=== PATIENT | female | born 1965 | race Caucasian/White ===

== ENCOUNTER 2017-08-19 19:10 | Emergency (ER) | payer OTHER ==
[2017-08-19 19:34] VITALS: BP 130/75; PULSE 93; O2SAT 100
[2017-08-19 19:54] LABS: BASOPHIL % 0.5 % (0.0-0.4); Basophil (Absolute #) 0.01 (0-0.4); Eosinophil (Absolute #) 0.02 (0-0.5); Granulocyte Absolute (ANC) 1.21 (1.4-6.9); Granulocytes % 61.4 % (36.0-66.0); Hematocrit 36.8 % (35-47); Hemoglobin 12.7 gm/dl (12.0-16.0); Lymphocytes % 20.3 % (24.0-44.0); Mean Cell Volume 101.1 fl (78-100); Mean Corpuscular Hgb Concent. 34.5 g/dl (32-36); Monocyte (Absolute #) 0.33 (0.0-1.3); Monocytes % 16.8 % (0.0-12.0); Platelet Count 181 K/mm3 (150-450); Red Blood Count 3.64 M/mm3 (4.1-5.4)
--- NOTE | 2017-08-19 19:55 | ERPHSYRPT ---
- History of Present Illness Time Seen by Provider: 08/19/17 19:27 Source: patient Exam Limitations: no limitations Patient Subjective Stated Complaint: Pt arrives to ER escorted by Police for c/ o "I don't want to live anymore. I don't want to kill myself, I'm too afraid. I just want to ". Pt explains that her granddaughter has been taken away from her daughter because her daughter is on drugs and has behavior problems. Pt called CPS on her daughter because of her daughters behavior. CPS took daughter' s parental rights away. CPS came to take pts granddaughter away from her. Pt has been done with Chemo and Radiation for months. Pt states her granddaughter helped her, giving her a reason to live and CPS took her granddaughter away from her. Pt house [facility] and shes going to lose it after 15 years. [facility] has appointment in August for her cancer. She has no money and lost her job. [facility] her friends have abandoned her. Pt tearful during assessment. [facility] took three 0.5mg Ativan pills around 1700. Triage Nursing Assessment: see above Physician History: Pt underwent surgery, chemotherapy and radiation for throat cancer since March of this year. She has been depressed. She took 4 x0.5 mg ativan tablets this afternoon, because she " just wanted to sleep ". Police was called , and she was brought here, but she denies being suicidal, she has been calm and cooperative, denies any complaints, besides her depression. She denies alcohol, taking other drugs, or any injuries. Timing/Duration: today Severity of Symptoms-Max: none Severity of Symptoms-Current: none Context related to: other (medical disease) Associated Symptoms: denies symptoms Previous symptoms: no prior history Allergies/Adverse Reactions: No Known Drug Allergies Allergy (Unverified 08/19/17 19:34) Home Medications: ALPRAZolam [Xanax ER 0.5MG] 0.5 mg PO DAILY 08/19/17 [History] Docusate Sodium 100 mg [Colace 100 MG] 100 mg PO DAILY 08/19/17 [History] Hydrocodone/Acetaminophen [Hydrocodone-Acetamin 5-325 mg] 5 mg PO Q6-8HPRN PRN 08/19/17 [History] Lidocaine HCl [Lidocaine HCl Viscous] 20 mg MM Q2H/PRN PRN 08/19/17 [History] Nystatin/TCN/Hc/Diphenhydram [Katerin's Magic Mouthwash] 20 ml MM Q2H/PRN PRN 08/19/17 [History] Omeprazole 20 mg PO DAILY 08/19/17 [History] Ondansetron [Ondansetron Odt] 8 mg PO Q6-8HPRN PRN 08/19/17 [History] - Past Medical History Pertinent Past Medical History: Yes Other Medical History: allopecia, throat cancer - Past Surgical History Past Surgical History: Yes Female Surgical History: Section Other Surgical History: port placement, throat surgery for cancer removal - Social History Smoking Status: Former smoker How long have you smoked: 20 Exposure to second hand smoke: No Drug Use: none Patient Lives Alone: No - Female History Hx Now: No - Review of Systems Constitutional: No Symptoms Psychological: Depression, No Alcohol Abuse, No Drug Abuse, No Suicidal Ideations All Other Systems: Reviewed and Negative - Nursing Vital Signs Nursing Vital Signs: Initial Vital Signs Temperature 98.5 F 08/19/17 19:14 Pulse Rate 93 H 08/19/17 19:14 Respiratory Rate 18 08/19/17 19:14 Blood Pressure 130/75 08/19/17 19:14 O2 Sat by Pulse Oximetry 100 08/19/17 19:14 Pain Scale Pain Intensity 0 - Physical Exam General Appearance: no apparent distress Eyes, Ears, Nose, Throat Exam: normal ENT inspection, moist mucous membranes, other (oral thrush) Neck Exam: normal inspection, non-tender, supple, No JVD Respiratory Exam: normal breath sounds, lungs clear, airway intact Cardiovascular Exam: regular rate/rhythm, normal heart sounds, normal peripheral pulses, No murmur Gastrointestinal/Abdominal Exam: soft, normal bowel sounds, No tenderness Extremities Exam: normal inspection Neurological Exam: alert, normal mood/affect, oriented x 3 Appearance: appropriate appearance, appropriate insight Behavior/Eye Contact/Speech: alert & cooperative Thoughts/Hallucinations: normal thought pattern Skin Exam: normal color, warm, dry, other (few soltary scamm, scab covered lesions on her face, no ulcers or other lesions.) SpO2 Interpretation: normal SpO2: 100 Oxygen Delivery: Room Air - Course Nursing assessment & vital signs reviewed: Yes EKG Interpreted by Me: RATE (94/min), NORMAL AXIS, NORMAL INTERVALS, NORMAL ST-T Ordered Tests: Active Orders 24 hr Category Date Time Status EKG-ER Only STAT Care 08/19/17 19:31 Active ACETAMINOPHEN Stat Lab 08/19/17 20:00 Completed CBC W DIFF Stat Lab 08/19/17 19:31 Results CMP Stat Lab 08/19/17 20:00 Completed ETHYL ALCOHOL Stat Lab 08/19/17 20:00 Completed Manual Differential NC Stat Lab 08/19/17 19:31 Results Pathologist Review Stat Lab 08/19/17 19:31 Results SALICYLATE Stat Lab 08/19/17 20:00 Completed TSH [TSH, 3RD Generation] Stat Lab 08/19/17 20:00 Completed UA W/ MICROSCOPIC Stat Lab 08/19/17 20:03 Completed Urine Triage Profile Stat Lab 08/19/17 20:00 Completed Lab/Rad Data: Laboratory Result Diagrams 08/19/17 19:31 08/19/17 20:00 Laboratory Results 08/19/17 08/19/17 08/19/17 Range/Units 20:03 20:00 20:00 WBC (4.0-10.5) K/mm3 RBC (4.1-5.4) M/mm3 Hgb (12.0-16.0) gm/dl Hct (35-47) % MCV (78-100) fl MCH (26-32) pg MCHC (32-36) g/dl RDW (11.5-14.0) % Plt Count (150-450) K/mm3 MPV (6-9.5) fl Gran % (36.0-66.0) % Eos # (Auto) (0-0.5) Absolute Lymphs (auto) (1.0-4.6) Absolute Monos (auto) (0.0-1.3) Lymphocytes % (24.0-44.0) % Monocytes % (0.0-12.0) % Eosinophils % (0.00-5.0) % Basophils % (0.0-0.4) % Absolute Granulocytes (1.4-6.9) Segmented Neutrophils (36.0-66.0) % Lymphocytes (Manual) (24-44) % Monocytes (Manual) (0.0-12.0) % Basophils # (0-0.4) Platelet Estimate (NORMAL) RBC Morphology Poikilocytosis Anisocytosis Smear Path Review Sodium (137-145) mmol/L Potassium (3.5-5.1) mmol/L Chloride (98-107) mmol/L Carbon Dioxide (22-30) mmol/L Anion Gap (5-15) MEQ/L BUN (7-17) mg/dL Creatinine (0.52-1.04) mg/dL Estimated GFR ML/MIN Glucose (74-106) mg/dL Calcium (8.4-10.2) mg/dL Total Bilirubin (0.2-1.3) mg/dL AST (14-36) U/L ALT (0-35) U/L Alkaline Phosphatase (38-126) U/L Serum Total Protein (6.3-8.2) g/dL Albumin (3.5-5.0) g/dL TSH 3rd Generation 2.890 (0.47-4.68) mIU/L Ur Collection Type CCMS Urine Color LT.YELLOW (YELLOW) Urine Appearance CLEAR (CLEAR) Urine pH 7.0 (5-6) Ur Specific [place] 1.005 (1.005-1.025) Urine Protein NEGATIVE (Negative) Urine Ketones NEGATIVE (NEGATIVE) Urine Blood TRACE HEMOLYZED (0-5) Onesimo/ul Urine Nitrite NEGATIVE (NEGATIVE) Urine Bilirubin NEGATIVE (NEGATIVE) Urine Urobilinogen NORMAL (0-1) mg/dL Ur Leukocyte Esterase TRACE (NEGATIVE) Urine Microscopic WBC 0-2 (0-5) /HPF Urine Culture Reflexed NO (NO) Urine Glucose NEGATIVE (NEGATIVE) mg/dL Salicylates (2-20) mg/dL Urine Opiates Level NEGATIVE (NEGATIVE) Ur Methadone NEGATIVE (NEGATIVE) Acetaminophen (10-30) ug/ml Urine Barbiturates NEGATIVE (NEGATIVE) Ur Phencyclidine (PCP) NEGATIVE (NEGATIVE) Urine Amphetamine NEGATIVE (NEGATIVE) U Benzodiazepine Level NEGATIVE (NEGATIVE) Urine Cocaine NEGATIVE (NEGATIVE) Urine Marijuana (THC) NEGATIVE (NEGATIVE) Ethyl Alcohol (0-10) mg/dL Specimen Received [id number]/19/17 08/19/17 Range/Units 20:00 19:31 WBC 2.0 L (4.0-10.5) K/mm3 RBC 3.64 L (4.1-5.4) M/mm3 Hgb 12.7 (12.0-16.0) gm/dl Hct 36.8 (35-47) % MCV 101.1 H (78-100) fl MCH 34.8 H (26-32) pg MCHC 34.5 (32-36) g/dl RDW 16.0 H (11.5-14.0) % Plt Count 181 (150-450) K/mm3 MPV 10.0 H (6-9.5) fl Gran % 61.4 (36.0-66.0) % Eos # (Auto) 0.02 (0-0.5) Absolute Lymphs (auto) 0.40 L (1.0-4.6) Absolute Monos (auto) 0.33 (0.0-1.3) Lymphocytes % 20.3 L (24.0-44.0) % Monocytes % 16.8 H (0.0-12.0) % Eosinophils % 1.0 (0.00-5.0) % Basophils % 0.5 (0.0-0.4) % Absolute Granulocytes 1.21 L (1.4-6.9) Segmented Neutrophils 60 (36.0-66.0) % Lymphocytes (Manual) 25 (24-44) % Monocytes (Manual) 15 H (0.0-12.0) % Basophils # 0.01 (0-0.4) Platelet Estimate NORMAL (NORMAL) RBC Morphology ABNORMAL Poikilocytosis 1+ Anisocytosis 1+ Smear Path Review Pending Sodium 144 (137-145) mmol/L Potassium 3.4 L (3.5-5.1) mmol/L Chloride 105 (98-107) mmol/L Carbon Dioxide 28 (22-30) mmol/L Anion Gap 13.8 (5-15) MEQ/L BUN 12 (7-17) mg/dL Creatinine 0.65 (0.52-1.04) mg/dL Estimated GFR > 60.0 ML/MIN Glucose 107 H (74-106) mg/dL Calcium 10.1 (8.4-10.2) mg/dL Total Bilirubin 0.40 (0.2-1.3) mg/dL AST 24 (14-36) U/L ALT 18 (0-35) U/L Alkaline Phosphatase 74 (38-126) U/L Serum Total Protein 7.7 (6.3-8.2) g/dL Albumin 4.7 (3.5-5.0) g/dL TSH 3rd Generation (0.47-4.68) mIU/L Ur Collection Type Urine Color (YELLOW) Urine Appearance (CLEAR) Urine pH (5-6) Ur Specific [place] (1.005-1.025) Urine Protein (Negative) Urine Ketones (NEGATIVE) Urine Blood (0-5) Onesimo/ul Urine Nitrite (NEGATIVE) Urine Bilirubin (NEGATIVE) Urine Urobilinogen (0-1) mg/dL Ur Leukocyte Esterase (NEGATIVE) Urine Microscopic WBC (0-5) /HPF Urine Culture Reflexed (NO) Urine Glucose (NEGATIVE) mg/dL Salicylates < 1.0 L (2-20) mg/dL Urine Opiates Level (NEGATIVE) Ur Methadone (NEGATIVE) Acetaminophen < 10 L (10-30) ug/ml Urine Barbiturates (NEGATIVE) Ur Phencyclidine (PCP) (NEGATIVE) Urine Amphetamine (NEGATIVE) U Benzodiazepine Level (NEGATIVE) Urine Cocaine (NEGATIVE) Urine Marijuana (THC) (NEGATIVE) Ethyl Alcohol < 10 (0-10) mg/dL Specimen Received - Progress Progress: unchanged Progress Note: 08/19/17 21:00 Pt remains calm, cooperative, communicates, she wants to go home, denies being suicidal. She is medically clear for psychiatric evaluation. 08/19/17 23:18 Telepsychiatry was completed by [facility], she was instructed to follow up with them as an outpatient, and safe to be discharged on a psychiatric standpoint. Counseled pt/family regarding: lab results, diagnosis, need for follow-up - Departure Time of Disposition: 23:19 Departure Disposition: Home Clinical Impression: Depression Qualifiers: Depression Type: unspecified Qualified Code(s): F32.9 - Major depressive disorder, single episode, unspecified Condition: Stable Critical Care Time: No Referrals: DRE CLEMONS [Primary Care Provider] - Instructions: Depression, Adult (DC) Additional Instructions: Return if severe depression, becoming suicidal! Follow up with [facility] outpatient clinc as directed, and with your PCP this week!
[2017-08-19 19:59] LABS: Mean Corpuscular Hemoglobin 34.8 pg (26-32)
[2017-08-19 20:11] LABS: ACETAMINOPHEN < 10 ug/ml (10-30); ALBUMIN 4.7 g/dL (3.5-5.0); ALKALINE PHOSPHATASE 74 U/L (38-126); ANION GAP 13.8 MEQ/L (5-15); BLOOD UREA NITROGEN 12 mg/dL (7-17); CHLORIDE 105 mmol/L (98-107); Calcium 10.1 mg/dL (8.4-10.2); Carbon Dioxide 28 mmol/L (22-30); Creatinine 1 0.65 mg/dL (0.52-1.04); ETHYL ALCOHOL < 10 mg/dL (0-10); Glucose 107 mg/dL (74-106); Potassium 3.4 mmol/L (3.5-5.1); SALICYLATE < 1.0 mg/dL (2-20); SGOT/AST 24 U/L (14-36); SGPT/ALT 18 U/L (0-35); SODIUM 144 mmol/L (137-145); Total Protein 7.7 g/dL (6.3-8.2)
[2017-08-19 20:17] LABS: Appearance CLEAR (CLEAR); Bilirubin NEGATIVE (NEGATIVE); Blood TRACE HEMOLYZED Ery/ul (0-5); Glucose NEGATIVE (NEGATIVE); Ketones NEGATIVE (NEGATIVE); Leukocyte Esterase TRACE (NEGATIVE); Nitrite NEGATIVE (NEGATIVE); Protein,Urine Dip NEGATIVE (Negative); Specific Gravity 1.005 (1.005-1.025); Urobilinogen NORMAL mg/dL (0-1)
[2017-08-19 20:18] LABS: WBC 0-2 /HPF (0-5)
[2017-08-19 20:24] LABS: Amphetamine,Urine NEGATIVE (NEGATIVE); Barbiturate,Urine NEGATIVE (NEGATIVE); Benzodiazepine,Urine NEGATIVE (NEGATIVE); Cocaine,Urine NEGATIVE (NEGATIVE); Methadone,Urine NEGATIVE (NEGATIVE); Opiate,Urine NEGATIVE (NEGATIVE); PCP,Urine NEGATIVE (NEGATIVE); THC,Urine NEGATIVE (NEGATIVE)
[2017-08-19 21:03] LABS: Lymphocytes 25 % (24-44); Monocyte 15 % (0.0-12.0); Neutrophils 60 % (36.0-66.0); Total Cells Counted 100
[2017-08-19 21:04] LABS: Poikilocytosis 1+
[2017-08-19 21:06] LABS: ANISOCYTOSIS 1+; Platelet Estimate NORMAL (NORMAL)
== END 2017-08-19 23:27 | disposition home or self-care (01) ==
LOC: ED 19:10
DX: F32.9 Major depressive disorder, single episode, unspecified (principal); Z79.899 Other long term (current) drug therapy
CPT/HCPCS: 36415; 80053; 80307; 81000; 84443; 85025; 90791; 93005; G0481; 99284; Q3014; G0480

== ENCOUNTER 2021-11-16 01:33 | Emergency (ER) | payer MEDICARE, OTHER ==
[2021-11-16] MEDS ORDERED: Sodium Chloride 0.9% 1000 ML 1,000 ML IV STA (02:08)
[2021-11-16] MEDS ORDERED: TORAdol 30 mg Injection IV ONE (02:10)
--- NOTE | 2021-11-16 02:15 | ERPHSYRPT ---
- History of Present Illness Historian: patient Exam Limitations: no limitations Patient Subjective Stated Complaint: My stomach is killing me, this started about 2 hours ago and came out of no where. Triage Nursing Assessment: pt ambulated into ER. Pt c/o mid upper abd pain which started around midnight tonight. Pt describes pain as "cramping and aching". Pt informed me this has occured 2 other times in the last 2 months. Abd soft, flat with faint bs x4 quad, tender to mid upper abd section on palpation. Pt is nauseated, vomited x1, belching and has alot of gas, bm x2 today, no diarrhea. Physician History: 56 yo wf w alsyon-umbilical pain [id number]. Pain is sharp/cramping and 8/10 on scale. She has had N/V wo hematemesis/diarrhea. Melena/hematochezia denied, along w dysuria/hematuria/chest pain/cough/fever. Pt still has her appen memo/gallbladder and is post-menopausal. Timing/Duration: other (90min) Quality: cramping, sharpness Abdominal Pain Onset Location: periumbilical Pain Radiation: no radiation Severity of Pain-Max: severe Severity of Pain-Current: severe Modifying Factors: Improves With: lying down (Makes pain worse) Associated Symptoms: nausea, vomiting, No back, No chest pain, No diaphoresis, No diarrhea, No fever/chills, No fatigue, No headache, No heartburn, No loss of appetite, No neck pain, No rash, No shortness of breath, No syncope, No weakness Previous symptoms: same symptoms as today Allergies/Adverse Reactions: No Known Drug Allergies Allergy (Verified 11/16/21 01:58) Home Medications: Citalopram Hydrobromide [Celexa] 40 mg PO DAILY 11/16/21 [History] Hx Tetanus, Diphtheria Vaccination/Date Given: Yes Hx Influenza Vaccination/Date Given: No Hx Pneumococcal Vaccination/Date Given: No Immunizations Up to Date: Yes Travel Risk - International Travel Have you traveled outside of the country in past 3 weeks: No - Coronavirus Screening Are you exhibiting any of the following symptoms?: No Close contact with a COVID-19 positive Pt in past 14-21 Days: No - Vaccine Status Have you recieved a Covid-19 vaccination: No - Review of Systems Constitutional: No Symptoms Eyes: No Symptoms Ears, Nose, & Throat: No Symptoms Respiratory: No Symptoms Cardiac: No Symptoms Abdominal/Gastrointestinal: No Symptoms, Abdominal Pain, Nausea, Vomiting Genitourinary Symptoms: No Symptoms Musculoskeletal: No Symptoms Skin: No Symptoms Neurological: No Symptoms Psychological: No Symptoms Endocrine: No Symptoms Hematologic/Lymphatic: No Symptoms Immunological/Allergic: No Symptoms - Past Medical History Pertinent Past Medical History: Yes Neurological History: No Pertinent History ENT History: No Pertinent History Cardiac History: No Pertinent History Respiratory History: No Pertinent History Endocrine Medical History: No Pertinent History Musculoskeletal History: No Pertinent History History: No Pertinent History Psycho-Social History: No Pertinent History Female Reproductive Disorders: No Pertinent History Other Medical History: allopecia, throat cancer - Past Surgical History Past Surgical History: Yes Female Surgical History: Section Other Surgical History: port placement, throat surgery for cancer removal - Social History Smoking Status: Former smoker How long have you smoked: 20 Exposure to second hand smoke: No Drug Use: none Patient Lives Alone: No Significant Family History: no pertinent family hx - Nursing Vital Signs Nursing Vital Signs: Initial Vital Signs Temperature 96.4 F 11/16/21 01:50 Pulse Rate 70 11/16/21 01:50 Respiratory Rate 16 11/16/21 01:50 Blood Pressure 96/53 11/16/21 01:50 O2 Sat by Pulse Oximetry 96 11/16/21 01:50 Pain Scale Pain Intensity 0 Borderline hypotension - Physical Exam General Appearance: no apparent distress (In pain) Eye Exam: PERRL/EOMI, eyes nml inspection Ears, Nose, Throat Exam: normal ENT inspection, TMs normal, pharynx normal, moist mucous membranes Neck Exam: normal inspection, non-tender, supple, full range of motion, No meningismus, No mass, No Brudzinski, No Kernig's Respiratory Exam: normal breath sounds, lungs clear, airway intact Cardiovascular Exam: regular rate/rhythm, normal heart sounds, normal peripheral pulses, capillary refill <2 sec, No murmur Gastrointestinal/Abdomen Exam: soft, tenderness (Moderate periumbilical TTP wo guarding or rebound) Back Exam: normal inspection, normal range of motion, No CVA tenderness, No vertebral tenderness Extremity Exam: normal inspection, normal range of motion Neurologic Exam: alert, oriented x 3, cooperative, 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, normal mood/affect, sensation nml Skin Exam: normal color, warm, dry Lymphatic Exam: No adenopathy SpO2 Interpretation: normal SpO2: 96 O2 Delivery: Room Air - Course Nursing assessment & vital signs reviewed: Yes EKG Interpreted by Me: RATE (NSR/Rate74/Prolonged QT-QTc/Poor tracing due to artifact/Nonspecific ST-Twave changes) - CT Exams Abdomen/Pelvis CT Interpretation: Tele-radiologist Report (Cholelithiasis) Ordered Tests: Active Orders 24 hr Category Date Time Status EKG-ER Only STAT Care 11/16/21 02:08 Completed IV Insertion STAT Care 11/16/21 02:08 Completed ABDOMEN AND PELVIS W CONTRAST [CT] Stat Exams 11/16/21 03:12 Taken AMYLASE Stat Lab 11/16/21 02:27 Completed CBC W DIFF Stat Lab 11/16/21 02:27 Completed CMP Stat Lab 11/16/21 02:27 Completed CULTURE,URINE Stat Lab 11/16/21 02:26 Received HCG QUALITATIVE,SERUM Stat Lab 11/16/21 02:27 Completed LIPASE Stat Lab 11/16/21 02:27 Completed Lactic Acid Stat Lab 11/16/21 02:24 Completed TROPONIN Q4H Lab 11/16/21 02:27 Completed UA W/RFX CULTURE Stat Lab 11/16/21 02:26 Completed Medication Summary Discontinued Medications Generic Name Dose Route Start Last Admin Trade Name Freq PRN Reason Stop Dose Admin Sodium Chloride 1,000 mls @ 999 mls/hr 11/16/21 02:08 11/16/21 02:33 Sodium Chloride 0.9% 1000 Ml IV 11/16/21 03:08 999 mls/hr .Q1H1M STA Administration Sodium Chloride Confirm 11/16/21 02:29 Sodium Chloride 0.9% 1000 Ml Administered 11/16/21 02:30 Dose 1,000 mls @ ud .ROUTE .STK-MED ONE Ketorolac Tromethamine 15 mg 11/16/21 02:10 11/16/21 02:32 Ketorolac Tromethamine 30 Mg/Ml Inj IV 11/16/21 02:11 15 mg STAT ONE Administration Ketorolac Tromethamine Confirm 11/16/21 02:29 Ketorolac Tromethamine 30 Mg/Ml Inj Administered 11/16/21 02:30 Dose 30 mg .ROUTE .STK-MED ONE Ondansetron HCl 4 mg 11/16/21 02:30 11/16/21 02:32 Ondansetron Hcl 4 Mg/2 Ml Vial IV 11/16/21 02:31 4 mg STAT ONE Administration Ondansetron HCl Confirm 11/16/21 02:29 Ondansetron Hcl 4 Mg/2 Ml Vial Administered 11/16/21 02:30 Dose 4 mg .ROUTE .STK-MED ONE Lab/Rad Data: Laboratory Result Diagrams 11/16/21 02:27 11/16/21 02:27 Laboratory Results 11/16/21 11/16/21 11/16/21 Range/Units 02:27 02:27 02:27 WBC (4.0-10.5) x10^3/uL RBC (4.1-5.4) x10^6/uL Hgb (12.0-16.0) g/dL Hct (35-47) % MCV (78-100) fL MCH (26-32) pg MCHC (32-36) g/dL RDW (11.5-14.0) % Plt Count (150-450) x10^3/uL MPV (7.5-11.0) fL Gran % (36.0-66.0) % Immature Gran % (Auto) (0.00-0.4) % Nucleat RBC Rel Count (0.00-0.1) % Eos # (Auto) (0-0.5) x10^3/uL Immature Gran # (Auto) (0.00-0.03) x10^3u/L Absolute Lymphs (auto) (1.0-4.6) x10^3/uL Absolute Monos (auto) (0.0-1.3) x10^3/uL Absolute Nucleated RBC (0.00-0.01) x10^3u/L Lymphocytes % (24.0-44.0) % Monocytes % (0.0-12.0) % Eosinophils % (0.00-5.0) % Basophils % (0.0-0.4) % Absolute Granulocytes (1.4-6.9) x10^3/uL Basophils # (0-0.4) x10^3/uL Sodium 137 (137-145) mmol/L Potassium 3.7 (3.5-5.1) mmol/L Chloride 101 (98-107) mmol/L Carbon Dioxide 32 H (22-30) mmol/L Anion Gap 7.7 (5-15) MEQ/L BUN 25 H (7-17) mg/dL Creatinine 0.63 (0.52-1.04) mg/dL Estimated GFR > 60.0 ML/MIN Glucose 163 H (74-106) mg/dL Lactic Acid (0.4-2.0) Calcium 9.4 (8.4-10.2) mg/dL Total Bilirubin 0.50 (0.2-1.3) mg/dL AST 159 H (14-36) U/L ALT 73 H (0-35) U/L Alkaline Phosphatase 77 (38-126) U/L Troponin I < 0.012 (0.000-0.034) ng/mL Serum Total Protein 6.9 (6.3-8.2) g/dL Albumin 4.3 (3.5-5.0) g/dL Amylase 81 (30-110) U/L Lipase 191 (23-300) U/L Serum , Qual NEGATIVE (Negative) Urinalys Dipstick Clnc Urine Color (YELLOW) Urine Appearance (CLEAR) Urine pH (5-6) Ur Specific [place] (1.005-1.025) POC Urine Protein Conf (Negative) Urine Ketones (NEGATIVE) Urine Nitrite (NEGATIVE) Urine Bilirubin (NEGATIVE) Urine Urobilinogen (0-1) mg/dL Urine Leukocytes (NEGATIVE) Urine WBC (Auto) (0-5) /HPF Urine RBC (Auto) (0-2) /HPF U Epithel Cells (Auto) (FEW) /HPF Urine Bacteria (Auto) (NEGATIVE) /HPF Urine RBC (0-5) Onesimo/ul Calcium Oxalate Crystal (NEGATIVE) /HPF Urine Mucus (Auto) (NEGATIVE) /HPF Ur Culture Indicated? Urine Glucose (NEGATIVE) mg/dL 11/16/21 11/16/21 11/16/21 Range/Units 02:27 02:26 02:24 WBC 5.8 (4.0-10.5) x10^3/uL RBC 4.01 L (4.1-5.4) x10^6/uL Hgb 12.7 (12.0-16.0) g/dL Hct 39.2 (35-47) % MCV 97.8 (78-100) fL MCH 31.7 (26-32) pg MCHC 32.4 (32-36) g/dL RDW 13.0 (11.5-14.0) % Plt Count 246 (150-450) x10^3/uL MPV 10.1 (7.5-11.0) fL Gran % 77.6 H (36.0-66.0) % Immature Gran % (Auto) 0.5 H (0.00-0.4) % Nucleat RBC Rel Count 0.0 (0.00-0.1) % Eos # (Auto) 0.08 (0-0.5) x10^3/uL Immature Gran # (Auto) 0.03 (0.00-0.03) x10^3u/L Absolute Lymphs (auto) 0.76 L (1.0-4.6) x10^3/uL Absolute Monos (auto) 0.39 (0.0-1.3) x10^3/uL Absolute Nucleated RBC 0.00 (0.00-0.01) x10^3u/L Lymphocytes % 13.2 L (24.0-44.0) % Monocytes % 6.8 (0.0-12.0) % Eosinophils % 1.4 (0.00-5.0) % Basophils % 0.5 (0.0-0.4) % Absolute Granulocytes 4.46 (1.4-6.9) x10^3/uL Basophils # 0.03 (0-0.4) x10^3/uL Sodium (137-145) mmol/L Potassium (3.5-5.1) mmol/L Chloride (98-107) mmol/L Carbon Dioxide (22-30) mmol/L Anion Gap (5-15) MEQ/L BUN (7-17) mg/dL Creatinine (0.52-1.04) mg/dL Estimated GFR ML/MIN Glucose (74-106) mg/dL Lactic Acid 1.2 (0.4-2.0) Calcium (8.4-10.2) mg/dL Total Bilirubin (0.2-1.3) mg/dL AST (14-36) U/L ALT (0-35) U/L Alkaline Phosphatase (38-126) U/L Troponin I (0.000-0.034) ng/mL Serum Total Protein (6.3-8.2) g/dL Albumin (3.5-5.0) g/dL Amylase (30-110) U/L Lipase (23-300) U/L Serum , Qual (Negative) Urinalys Dipstick Clnc MAIN LAB Urine Color YELLOW (YELLOW) Urine Appearance CLEAR (CLEAR) Urine pH 5.5 (5-6) Ur Specific [place] >=1.030 (1.005-1.025) POC Urine Protein Conf NEGATIVE (Negative) Urine Ketones NEGATIVE (NEGATIVE) Urine Nitrite NEGATIVE (NEGATIVE) Urine Bilirubin NEGATIVE (NEGATIVE) Urine Urobilinogen 0.2 (0-1) mg/dL Urine Leukocytes SMALL (NEGATIVE) Urine WBC (Auto) 16-25 (0-5) /HPF Urine RBC (Auto) 3-5 (0-2) /HPF U Epithel Cells (Auto) RARE (FEW) /HPF Urine Bacteria (Auto) NONE SEEN (NEGATIVE) /HPF Urine RBC TRACE-INTACT (0-5) Onesimo/ul Calcium Oxalate Crystal 3-5 (NEGATIVE) /HPF Urine Mucus (Auto) SLIGHT (NEGATIVE) /HPF Ur Culture Indicated? YES Urine Glucose NEGATIVE (NEGATIVE) mg/dL - Progress Progress: improved Progress Note: 11/16/21 04:11 Pain started to sugey before 15mg IV Toradol and subsided after Toradol given. 1L NS bolus/4mg IV Zofran 11/16/21 05:59 Pt pain free before discharge - Departure Departure Disposition: Home Clinical Impression: Cholelithiasis, UTI (urinary tract infection) Condition: Stable Critical Care Time: No Referrals: DRE CLEMONS [Primary Care Provider] - Follow up/PCP as directed Instructions: Urinary Tract Infection, Adult (DC), Severe Abdominal Pain, Adult (DC), Gallstones (DC) Additional Instructions: Ultrasound Gallbladder 11/21/21 11:00AM Start Bactrim twice a day for 5 days Follow up with Dr. Salazar [phone] Return to ER for increasing pain or temperature greater than 100.5 Prescriptions: Sulfamethoxazole/Trimethoprim [Bactrim Ds Tablet] 1 each PO BID #10 tablet
[2021-11-16] MEDS ORDERED: Zofran 4 MG/2 ML VIAL ONE (02:29)
[2021-11-16] MEDS ORDERED: TORAdol 30 mg Injection ONE (02:29)
[2021-11-16] MEDS ORDERED: Sodium Chloride 0.9% 1000 ML 1,000 ML ONE (02:29)
[2021-11-16] MEDS ORDERED: Zofran 4 MG/2 ML VIAL IV ONE (02:30)
[2021-11-16 02:31] LABS: Absolute Neutrophil Ct (ANC) 4.46 x10^3/uL (1.4-6.9); Basophil (Absolute #) 0.03 x10^3/uL (0-0.4); Eosinophil % 1.4 % (0.00-5.0); Eosinophil (Absolute #) 0.08 x10^3/uL (0-0.5); Hematocrit 39.2 % (35-47); Hemoglobin 12.7 g/dL (12.0-16.0); Lymphocyte (Absolute #) 0.76 x10^3/uL (1.0-4.6); Lymphocytes % 13.2 % (24.0-44.0); Mean Cell Volume 97.8 fL (78-100); Mean Corpuscular Hemoglobin 31.7 pg (26-32); Mean Corpuscular Hgb Concent. 32.4 g/dL (32-36); Mean Platelet Volume 10.1 fL (7.5-11.0); Monocyte (Absolute #) 0.39 x10^3/uL (0.0-1.3); Monocytes % 6.8 % (0.0-12.0); Neutrophil % 77.6 % (36.0-66.0); Platelet Count 246 x10^3/uL (150-450); Red Blood Count 4.01 x10^6/uL (4.1-5.4); White Blood Count 5.8 x10^3/uL (4.0-10.5)
[2021-11-16 02:35] LABS: Epithelial Cells RARE /HPF (FEW); Mucus SLIGHT /HPF (NEGATIVE)
[2021-11-16 02:36] LABS: Appearance CLEAR (CLEAR); Bilirubin NEGATIVE (NEGATIVE); Glucose NEGATIVE (NEGATIVE); Ketones NEGATIVE (NEGATIVE); Specific Gravity >=1.030 (1.005-1.025)
[2021-11-16 02:37] LABS: Bacteria NONE SEEN /HPF (NEGATIVE); Dipstick done @ ? MAIN LAB; Nitrite NEGATIVE (NEGATIVE); Ph 5.5 (5-6); Protein,Urine Dip NEGATIVE (Negative); RBC TRACE-INTACT Ery/ul (0-5); Urine Cultured Indicated? YES; Urobilinogen 0.2 mg/dL (0-1)
[2021-11-16 02:44] LABS: ALBUMIN 4.3 g/dL (3.5-5.0); ALKALINE PHOSPHATASE 77 U/L (38-126); AMYLASE 81 U/L (30-110); ANION GAP 7.7 MEQ/L (5-15); BLOOD UREA NITROGEN 25 mg/dL (7-17); CHLORIDE 101 mmol/L (98-107); Calcium 9.4 mg/dL (8.4-10.2); Carbon Dioxide 32 mmol/L (22-30); Creatinine 1 0.63 mg/dL (0.52-1.04); EST GLOMERULAR FILTRATION RATE > 60.0 ML/MIN; Glucose 163 mg/dL (74-106); LIPASE 191 U/L (23-300); Potassium 3.7 mmol/L (3.5-5.1); SGOT/AST 159 U/L (14-36); SGPT/ALT 73 U/L (0-35); SODIUM 137 mmol/L (137-145); Total Protein 6.9 g/dL (6.3-8.2)
[2021-11-16 05:54] VITALS: O2SAT 96
[2021-11-16 06:13] VITALS: BP 99/63; PULSE 60
--- NOTE | 2021-11-16 09:01 | XRAY ---
Indication: Abdomen pain, nausea, and vomiting. UTI. Multiple contiguous axial images obtained through the abdomen and pelvis using 80 cc Isovue 370 contrast. Comparison: None Lung bases emesis minimal bilateral dependent atelectasis. Posterior right lower lobe demonstrates 6 mm indeterminant subpleural noncalcified nodule. Similar 3 mm posterior lateral left lower lobe subpleural noncalcified nodule. Heart not enlarged. Noncontrasted stomach and bowel loops appear nonobstructed. Appendix not visualized. No free fluid/air. Mild distended gallbladder with tiny gravel in the dependent portion and diffuse biliary tree distention. Common bile duct measures 9 mm. No free fluid/air. Left lower kidney demonstrates nonobstructing punctate calculus. Small splenic calcified granuloma. Remaining liver, pancreas, spleen, adrenal glands, kidneys, ureters, bladder, uterus, and aorta are unremarkable. No pathologic retroperitoneal lymphadenopathy. Osseous structures intact with minimal degenerative spondylosis throughout the thoracolumbar spine, 4-5 mm L4 anterolisthesis, and mild levoscoliosis centered at L3. Impression: 1. Abnormal distended gallbladder with tiny gravel and diffuse biliary distention. Sonogram may yield further information. 2. Indeterminant noncalcified pulmonary micronodules. Outside comparison studies recommended if available. If not, CT chest with follow-up per Fleischner guidelines recommended. 3. Nonobstructing left renal punctate calculus and chronic bony findings. Comment: Preliminary interpretation made by [facility]. No critical discrepancy.
== END 2021-11-16 06:14 | disposition home or self-care (01) ==
LOC: ED 01:33
DX: K80.20 Calculus of gallbladder without cholecystitis without obstruction (principal); N39.0 Urinary tract infection, site not specified; R10.33 Periumbilical pain; R11.2 Nausea with vomiting, unspecified; Z79.899 Other long term (current) drug therapy; Z28.310 Unvaccinated for COVID-19
CPT/HCPCS: 36000; 36415; 74177; 80053; 81015; 82150; 83605; 83690; 84484; 84703; 85025; 87086; 93005; 96374; 96375; 99284; J1885; J2405

== ENCOUNTER 2021-11-16 17:20 | Observation (INO) | payer MEDICARE, OTHER ==
[2021-11-16] MEDS ORDERED: Zofran 4 MG/2 ML VIAL IV PRN (19:56)
[2021-11-16] MEDS: Hydromorphone 1 mg/ml Injection IV PRN (20:46)
[2021-11-16] MEDS: Sodium Chloride 0.9% 1000 ML 1,000 ML IV SCH (20:47)
[2021-11-16] MEDS ORDERED: ENOXAPARIN SODIUM SQ SCH (22:00)
[2021-11-16 22:24] LABS: Bacteria RARE /HPF (NEGATIVE); Epithelial Cells RARE /HPF (FEW); Mucus MANY /HPF (NEGATIVE)
[2021-11-16 22:25] LABS: Appearance SLIGHTLY CLOUDY (CLEAR); Bilirubin MODERATE (NEGATIVE); Dipstick done @ ? MAIN LAB; Glucose NEGATIVE (NEGATIVE); Ketones TRACE (NEGATIVE); Nitrite NEGATIVE (NEGATIVE); Protein,Urine Dip 30 (Negative); RBC NEGATIVE Ery/ul (0-5); Specific Gravity 1.025 (1.005-1.025); Urobilinogen 1 mg/dL (0-1)
[2021-11-16 22:26] LABS: Urine Cultured Indicated? YES
[2021-11-17] MEDS: Sodium Chloride 0.9% 1000 ML 1,000 ML IV SCH ×3 (03:20→18:37)
[2021-11-17 04:59] LABS: Basophil (Absolute #) 0.01 x10^3/uL (0-0.4); Eosinophil % 2.6 % (0.00-5.0); Eosinophil (Absolute #) 0.06 x10^3/uL (0-0.5); Hematocrit 32.5 % (35-47); Hemoglobin 10.7 g/dL (12.0-16.0); Lymphocyte (Absolute #) 0.61 x10^3/uL (1.0-4.6); Lymphocytes % 26.8 % (24.0-44.0); Mean Cell Volume 95.9 fL (78-100); Mean Corpuscular Hemoglobin 31.6 pg (26-32); Mean Corpuscular Hgb Concent. 32.9 g/dL (32-36); Mean Platelet Volume 10.4 fL (7.5-11.0); Monocyte (Absolute #) 0.29 x10^3/uL (0.0-1.3); Monocytes % 12.7 % (0.0-12.0); Neutrophil % 57.1 % (36.0-66.0); Platelet Count 191 x10^3/uL (150-450); Red Blood Count 3.39 x10^6/uL (4.1-5.4); Red Cell Distribution Width 13.6 % (11.5-14.0); White Blood Count 2.3 x10^3/uL (4.0-10.5)
[2021-11-17 05:33] LABS: ALBUMIN 3.2 g/dL (3.5-5.0); ALKALINE PHOSPHATASE 116 U/L (38-126); ANION GAP 2.3 MEQ/L (5-15); BLOOD UREA NITROGEN 10 mg/dL (7-17); CHLORIDE 109 mmol/L (98-107); Carbon Dioxide 31 mmol/L (22-30); Creatinine 1 0.53 mg/dL (0.52-1.04); Direct Bilirubin 1.6 mg/dL (0.0-0.4); EST GLOMERULAR FILTRATION RATE > 60.0 ML/MIN; Glucose 96 mg/dL (74-106); Potassium 3.8 mmol/L (3.5-5.1); SODIUM 138 mmol/L (137-145); Total Protein 5.7 g/dL (6.3-8.2)
[2021-11-17 05:58] LABS: SGOT/AST 987 U/L (14-36); SGPT/ALT 1136 U/L (0-35)
[2021-11-17] MEDS ORDERED: Sensorcaine 0.25% 10 ML ONE (06:57)
[2021-11-17] MEDS ORDERED: Lactated Ringers 1,000 ML IV ONE (06:57)
[2021-11-17] MEDS ORDERED: PIPERACILLIN/TAZOBACTAM 3.375 GM in Sodium Chloride 100ML MINI-BAG PLUS 100 ML IV SCH (10:00)
--- NOTE | 2021-11-17 10:15 | XRAY ---
Indication: Gallstones and elevated liver enzymes. Conventional MRCP was performed. Comparison: None Abnormally distended gallbladder up to 8.5 cm in length with multiple tiny sub-5 mm stones in the dependent portion. Also abnormal pericholecystic fluid concerning for acute cholecystitis. Additional tiny anterior perihepatic and right colic gutter free fluid presumed related. Visualized biliary tree is not abnormally distended but there is periportal edema. Common bile duct measures 7 mm with 4 mm stone distally. Pancreas and peripancreatic duct is unremarkable. Remaining visualized liver, spleen, adrenal glands, kidneys, stomach, bowel loops, aorta, and IVC are unremarkable. No abnormal bone marrow signal. Impression: Abnormal distended gallbladder with tiny stones and free fluid as detailed favoring acute cholecystitis. 4 mm distal common duct choledochal stone without abnormal biliary distention.
--- NOTE | 2021-11-17 11:15 | XRAY ---
Indication: Pain. Two-dimensional gallbladder sonogram performed. Comparison: None Gallbladder is distended with several tiny stones in the dependent portion. Also abnormal gallbladder wall thickening up to 5.1 mm with tiny pericholecystic fluid favoring acute cholecystitis. Common bile duct measures 6.5 mm. Remaining visualized liver, pancreas, and right kidney are sonographically unremarkable. Impression: Distended gallbladder with gallstones, wall thickening, and pericholecystic fluid favoring acute cholecystitis.
[2021-11-17] MEDS: PIPERACILLIN/TAZOBACTAM 3.375 GM in Sodium Chloride 100ML MINI-BAG PLUS 100 ML IV SCH ×2 (11:30→21:21)
[2021-11-17] MEDS: Hydromorphone 1 mg/ml Injection IV PRN (11:39)
[2021-11-17] MEDS ORDERED: CEFAZOLIN 2 GM-D5W BAG** 2 GM/50 ML ML IV SCH (12:00)
[2021-11-17] MEDS ORDERED: TYLENOL EXTRA STRENGTH 500 MG PO ONE (16:05)
[2021-11-17] MEDS ORDERED: ENOXAPARIN SODIUM SQ SCH (22:00)
[2021-11-17 23:20] VITALS: BP 96/58; PULSE 72; O2SAT 98
[2021-11-18] MEDS: Sodium Chloride 0.9% 1000 ML 1,000 ML IV SCH (01:26)
--- NOTE | 2021-11-30 13:41 | HP ---
CHIEF COMPLAINT: Abdominal pain. HISTORY OF PRESENT ILLNESS: The patient is a 56-year-old female that recently presented to the emergency department with right upper quadrant abdominal pain, work up consistent with chronic cholecystitis. However after leaving the hospital, she had persistent abdominal pain. She was evaluated in the office and found to have persistent abdominal pain not doing well with p.o. and directly admitted to the hospital. REVIEW OF SYSTEMS: Twelve point review of system negative otherwise. PAST MEDICAL HISTORY: Alopecia. History of throat cancer. PAST SURGICAL HISTORY: section. Port placement with removal. SOCIAL HISTORY: Former smoker. No alcohol. HOME MEDICATIONS: Xanax, omeprazole, hydrocodone. ALLERGIES: NKDA. PHYSICAL EXAMINATION: No acute distress. HEENT: No scleral icterus. CHEST: Nonlabored respirations. HEART: Regular rate and rhythm. ABDOMEN: Nondistended, soft, right upper quadrant tender with positive Cee sign. No rebound or guarding. EXTREMITIES: No peripheral edema. Moving all extremities. NEURO: Karlee Coma Scale (GCS) 15. LAB DATA AND TESTS: Please refer to the chart recent emergency room visit. ASSESSMENT AND PLAN: A 56-year-old female with what seems to be acute cholecystitis. Will get immediate lab work as well as repeat imaging to rule out any choledocholithiasis. If this is just cholecystitis, we will plan on taking her to the operating room.
--- NOTE | 2021-11-30 13:51 | DS ---
DISCHARGE DIAGNOSES: 1) CHOLEDOCHOLITHIASIS. 2) ACUTE CHOLECYSTITIS. HISTORY: The patient is a 56-year-old female that recently presented to the emergency department and was diagnosed with cholelithiasis, chronic cholecystitis. However she presents with persistent abdominal pain symptoms and was direct admitted to the hospital. HOSPITAL COURSE: The patient had repeat laboratory studies that did show bilirubin of 2.5 with an elevated direct bilirubin also. Ultrasound did show gallstones, wall thickening but with the elevated bilirubin MRCP was obtained which did show choledocholithiasis without proximal ductal dilation. With the choledocholithiasis, she had [facility] transfer initiated and the patient was ultimately accepted to [facility] for definitive care of her choledocholithiasis and cholecystitis. She had discharged directly to [facility] as a transfer for definitive care in fair condition. RECOMMENDATIONS: Management per tertiary care. She is welcome to follow up with me in two weeks in office or follow up as instructed by the tertiary center.
== END 2021-11-18 03:30 ==
LOC: MED SURG 19:28
PROVIDERS: ADMIT Surgery; ATTEND Surgery
DX: K80.50 Calculus of bile duct without cholangitis or cholecystitis without obstruction (principal); K80.20 Calculus of gallbladder without cholecystitis without obstruction; Z20.828 Contact with and (suspected) exposure to other viral communicable diseases; Z85.21 Personal history of malignant neoplasm of larynx; Z79.899 Other long term (current) drug therapy
CPT/HCPCS: 36000; 36415; 74177; 74181; 76705; 80048; 80053; 80076; 81015; 82150; 83605; 83690; 84484; 84703; 85025; 87086; 93005; 96374; 96375; 99284; G0378; J1170; J1650; J1885; J2405; A9270-GY